=== PATIENT | female | born 1970 | race Caucasian/White ===

== ENCOUNTER 2022-02-16 09:17 | Day surgery (SDC) | payer BC ==
[~2022-02-16 09:17] MED LIST: Lactated Ringers 1,000 ML IV SCH; Lidocaine 1% 4 ML ONE; Lidocaine 1%/Sod Bicarbonate in NS 8.4% 1 ML Syringe IDERM PRN; Midazolam 1 MG/ML 2 ML SDV ONE; Propofol 200 MG/20 ML SDV ONE; Sodium Chloride 0.9% 10 ML Syringe FLUSH PRN; Sodium Chloride 0.9% 10 ML Syringe FLUSH SCH; fentaNYL 100 MCG/2 ML SDV ONE
[2022-02-16] MEDS ORDERED: Bupivacaine 0.5% 30 ML SDV ONE (09:55)
[2022-02-16] MEDS ORDERED: Ondansetron 4 MG/2 ML SDV ONE (10:47)
== END 2022-02-16 12:20 | disposition home or self-care (01) ==
LOC: JD.SDS 09:17
PROVIDERS: ATTEND Surgery
DX: Z12.11 Encounter for screening for malignant neoplasm of colon (principal); K31.819 Angiodysplasia of stomach and duodenum without bleeding; K31.89 Other diseases of stomach and duodenum; K63.5 Polyp of colon; K29.70 Gastritis, unspecified, without bleeding; K22.89 Other specified disease of esophagus; K62.89 Other specified diseases of anus and rectum; F41.9 Anxiety disorder, unspecified; F32.A Depression, unspecified; L81.9 Disorder of pigmentation, unspecified; L57.8 Other skin changes due to chronic exposure to nonionizing radiation; Z79.899 Other long term (current) drug therapy; Z98.890 Other specified postprocedural states
CPT/HCPCS: 43239; 45380; J2250; J2405; J2704; J3010; J7120; J3490

== ENCOUNTER → 2025-04-28 | Day surgery (SDC) | payer BC ==
[~2025-04-28] MED LIST changes: -Lactated Ringers 1,000 ML IV SCH; -Lidocaine 1% 4 ML ONE; -Lidocaine 1%/Sod Bicarbonate in NS 8.4% 1 ML Syringe IDERM PRN; -Midazolam 1 MG/ML 2 ML SDV ONE; -Propofol 200 MG/20 ML SDV ONE; -fentaNYL 100 MCG/2 ML SDV ONE
[2025-04-28] MEDS: Lactated Ringers 1,000 ML IV SCH (06:30)
== END | disposition home or self-care (01) ==
LOC: JD.SDS 06:15
PROVIDERS: ATTEND Orthopaedic Surgery
DX: M06.372 Rheumatoid nodule, left ankle and foot (principal); I10 Essential (primary) hypertension; F32.A Depression, unspecified; F41.9 Anxiety disorder, unspecified; Z79.899 Other long term (current) drug therapy
CPT/HCPCS: 28041; J0665; J2003; J7120